=== PATIENT | male | born 2000 | race Caucasian/White ===

== ENCOUNTER 2020-05-18 18:11 | Emergency (ER) | payer OTHER ==
[2020-05-18] MEDS ORDERED: DIPH/PERTUSS(ACELL)/TETANUS VAC/PF 0.5 ML SYR (>=10YO) IM ONE (18:45)
[2020-05-18] MEDS ORDERED: OXYCODONE-ACETAMINOPHEN 5-325 MG TABLET PO ONE (18:48)
--- NOTE | 2020-05-18 19:26 | RADIOLOGY REPORT (SQ) ---
EXAM DESCRIPTION: TOE RIGHT IMAGES COMPLETED DATE/TIME: 05/18/2020 7:08 pm REASON FOR STUDY: right great toe FB COMPARISON: None. NUMBER OF VIEWS: Three views. TECHNIQUE: AP, lateral, and oblique images acquired of the right great toe LIMITATIONS: None. FINDINGS: MINERALIZATION: Normal. BONES: No acute fracture or dislocation. No worrisome bone lesions. No significant osteophytes. JOINTS: No erosions. No rebecca-articular osteopenia. No chondrocalcinosis. SOFT TISSUES: No swelling. No calcifications. OTHER: A metallic hook projects over the distal phalanx of the great toe. IMPRESSION: Metallic foreign body projecting over the distal phalanx of the great toe. No acute fracture. TECHNICAL DOCUMENTATION: JOB ID: [id number] 2010 [employer]- All Rights Reserved Reading location - IP/workstation name: [email or web address]
--- NOTE | 2020-05-18 20:04 | ER Document Report ---
ED Medical Screen (RME) - General Chief Complaint: Puncture Wound to Foot Stated Complaint: FISH HOOK IN RIGHT FOOT Time Seen by Provider: 05/18/20 18:44 Mode of Arrival: Wheelchair Information source: Patient Notes: 19-year-old male patient presenting with fishhook to his right great toe. [place] a [place]hook. He is unsure of his tetanus status. There is a large single barbed fishhook embedded in the right great toe. Patient will be sent for x-ray. I have greeted and performed a rapid initial assessment of this patient. A comprehensive ED assessment and evaluation of the patient, analysis of test results and completion of the medical decision making process will be conducted by additional ED providers. I have specifically instructed the patient or family members with the patient to immediately return to any nursing staff should anything change in the patient's condition or with their chief complaint. - Related Data Allergies/Adverse Reactions: No Known Allergies Allergy (Unverified 05/18/20 18:38) Physical Exam - Vital signs Vitals: Temp Pulse Resp BP Pulse Ox 98.4 F 92 16 132/61 H 100 05/18/20 18:20 05/18/20 18:20 05/18/20 18:20 05/18/20 18:20 05/18/20 18:20 Course - Vital Signs Vital signs: Temp Pulse Resp BP Pulse Ox 98.4 F 92 16 132/61 H 100 05/18/20 18:20 05/18/20 18:20 05/18/20 18:20 05/18/20 18:20 05/18/20 18:20
[2020-05-18] MEDS ORDERED: BUPIVACAINE HCL 0.5 % INJ/PF 30 ML SDV INJ ONE (20:11)
[2020-05-18] MEDS ORDERED: LIDOCAINE 1% INJ-PF (10 MG/ML) 30 ML SDV INJ ONE (20:11)
--- NOTE | 2020-05-18 20:15 | ER Document Report ---
ED Wound - General Chief Complaint: Puncture Wound to Foot Stated Complaint: FISH HOOK IN RIGHT FOOT Time Seen by Provider: 05/18/20 18:44 Mode of Arrival: Wheelchair Notes: Patient is a 19 year old male that comes to the Emergency Department for chief complaint of a fish hook in his right great toe. He states [place] and he somehow stepped on this in the sand. He denies any other injury or any other complaints. His tetanus is not up to date. He denies any daily medications or past medical history. - Related Data Allergies/Adverse Reactions: No Known Allergies Allergy (Unverified 05/18/20 18:38) Past Medical History - General Information source: Patient - Social History Smoking Status: Current Every Day Smoker Drug Abuse: None Lives with: Family Family History: Reviewed & Not Pertinent - Immunizations Immunizations up to date: No Hx Diphtheria, Pertussis, Tetanus Vaccination: Yes Review of Systems - Review of Systems Constitutional: No symptoms reported EENT: No symptoms reported Cardiovascular: No symptoms reported Respiratory: No symptoms reported Gastrointestinal: No symptoms reported Genitourinary: No symptoms reported Male Genitourinary: No symptoms reported Musculoskeletal: See HPI Skin: See HPI Hematologic/Lymphatic: No symptoms reported Neurological/Psychological: No symptoms reported Physical Exam - Vital signs Vitals: Temp Pulse Resp BP Pulse Ox 98.4 F 92 16 132/61 H 100 05/18/20 18:20 05/18/20 18:20 05/18/20 18:20 05/18/20 18:20 05/18/20 18:20 - Notes Notes: GENERAL: Alert, interacts well. No acute distress. HEAD: Normocephalic, atraumatic. EYES: Pupils equal, round, and reactive to light. Extraocular movements intact. ENT: Oral mucosa moist, tongue midline. Oropharynx unremarkable. Airway patent. NECK: Full range of motion. Supple. Trachea midline. No lymphadenopathy. LUNGS: Clear to auscultation bilaterally, no wheezes, rales, or rhonchi. No respiratory distress. Non-tender chest wall. HEART: Regular rate and rhythm. No murmur ABDOMEN: Soft, non-tender. Non-distended. EXTREMITIES: The right great toe has an embedded fishhook over the medial side of the great toe. This does not include the nail. There is minimal tenderness over the toe in general, however range of motion is intact, capillary refill and sensation intact, normal extremity exam otherwise. BACK: no cervical, thoracic, lumbar midline tenderness. No saddle anesthesia, normal distal neurovascular exam. Moves all extremities in full range of motion. NEUROLOGICAL: Alert and oriented x3. Normal speech. Cranial nerves II through XII grossly intact. Strength 5/5 in all extremities. PSYCH: Normal affect, normal mood. SKIN: Warm, dry, normal turgor. No rashes or lesions noted. Course - Re-evaluation Re-evalutation: Patient with a fishhook embedded in his right great toe. No other injuries. Tetanus updated. Starting on doxycycline for vibrio species coverage. X-rays show no bony involvement. Digital block was performed, fishhook removed by clipping the hook and then pulling the fishhook out in one smooth motion using hemostats to clamp the end of the hook. This came out easily by backing the net making supervisor, there was essentially no richie left on the hook which appears to be old. Area cleaned thoroughly and dressed. Discussed care, follow-up, return cautions. Patient states understanding and agreement. - Vital Signs Vital signs: Temp Pulse Resp BP Pulse Ox 98.2 F 68 17 129/82 H 98 05/18/20 21:18 05/18/20 21:18 05/18/20 21:18 05/18/20 21:18 05/18/20 21:18 Procedures - Additional Procedures Foreign body removal Additional Procedures: Other - Right great toe fishhook foreign body removal. Area was cleaned with alcohol, digital block was performed using a total of 4 cc of 0.5% bupivacaine and 1% lidocaine. Excellent anesthesia was obtained. Area was cleaned again with surgical cleanser, hook was clipped using pliers, remaining embedded hook was removed by a smooth motion pulling with hemostats straight away from that toe. This was removed easily. No significant bleeding. Area cleaned and dressed. Discharge - Discharge Clinical Impression: Fishing hook foreign body Qualifiers: Encounter type: initial encounter Qualified Code(s): W45.8XXA - Other foreign body or object entering through skin, initial encounter Injury of right great toe Qualifiers: Encounter type: initial encounter Qualified Code(s): S99.921A - Unspecified injury of right foot, initial encounter Condition: Stable Disposition: HOME, SELF-CARE Additional Instructions: The fishhook has been removed. Keep the area clean with soap and water, keep a clean antibiotic dressing over the wound and elevate your foot for the first couple of days. Take the antibiotic as prescribed to completion. I recommend taking an over the counter probiotic while taking the antibiotic to avoid bowel issues. You can take 600 mg of ibuprofen and 1000 mg of Tylenol together every 6 hours if needed for pain. Follow-up with primary care. Return if you develop any concerning symptoms including severe worsening swelling or pain, developing or spreading redness, discolored drainage, fever, or any other concerning symptoms. Prescriptions: Doxycycline Hyclate [Vibramycin 100 mg Tablet] 100 mg PO BID 7 Days #14 tablet Forms: Return to Work
[2020-05-18] MEDS ORDERED: LORAZEPAM 1 MG TABLET PO ONE (20:54)
[2020-05-18 21:19] VITALS: BP 129/82
== END 2020-05-18 21:42 | disposition home or self-care (01) ==
LOC: ER 18:11
DX: S91.141A Puncture wound with foreign body of right great toe without damage to nail, initial encounter (principal); W45.8XXA Other foreign body or object entering through skin, initial encounter; Y93.01 Activity, walking, marching and hiking; Y92.832 Beach as the place of occurrence of the external cause; Z23 Encounter for immunization; F17.200 Nicotine dependence, unspecified, uncomplicated
CPT/HCPCS: 99283; 90471; 73660; 90715; 64450; J3490 ×2